=== PATIENT | female | born 1975 ===

== ENCOUNTER 2019-02-12 12:15 | Inpatient (IN) | payer OTHER ==
[~2019-02-12] VITALS: Ht 162.6 cm; Wt 74.4 kg
[~2019-02-12 12:15] MED LIST: ZYRTEC10 M3 PO
[2019-02-21] MEDS ORDERED: LEVSIN/SL0.125 MG SL (06:21)
[2019-02-21] MEDS ORDERED: KAOPECTATE240 MG PO (06:21)
[2019-02-21] MEDS ORDERED: OXYC1TAB9 PO (06:21)
== END 2019-02-21 07:06 | DRG 743 ==
LOC: OB/GYN 02-19 06:25 → O/R 02-19 06:25 → SURH 02-19 08:45 → OB/GYN 02-19 11:59 → SURH 02-19 12:15 → OB/GYN 02-21 07:06
PROVIDERS: ADMIT Obstetrics & Gynecology Gynecology
PROC: 0UT70ZZ Resection of Bilateral Fallopian Tubes, Open Approach (ICD-10-PCS; 2019-02-19)
PROC: 0UT90ZZ Resection of Uterus, Open Approach (ICD-10-PCS; principal; 2019-02-19 08:45)
DX: D25.1 Intramural leiomyoma of uterus (principal); D25.0 Submucous leiomyoma of uterus; D25.2 Subserosal leiomyoma of uterus; N83.8 Other noninflammatory disorders of ovary, fallopian tube and broad ligament; R73.03 Prediabetes